=== PATIENT | female | born 1995 | race Caucasian/White ===

== ENCOUNTER 2018-01-18 17:58 | Emergency (ER) | payer OTHER ==
[~2018-01-18] VITALS: Ht 160 cm; Wt 61.2 kg
[~2018-01-18 17:58] MED LIST: CATAFLAM50 MG PO; KETO10TA2 PO; ORPH100T PO
== END 2018-01-18 21:38 | disposition home or self-care (01) ==
LOC: ER 17:58
DX: J06.9 Acute upper respiratory infection, unspecified (principal); J32.8 Other chronic sinusitis

== ENCOUNTER 2019-08-27 12:01 | Emergency (ER) | payer OTHER ==
[~2019-08-27] VITALS: Ht 154.9 cm; Wt 56.7 kg
== END 2019-08-27 14:17 | disposition home or self-care (01) ==
LOC: ER 12:01
DX: B34.9 Viral infection, unspecified (principal); J11.1 Influenza due to unidentified influenza virus with other respiratory manifestations

== ENCOUNTER → 2019-12-04 11:27 | Outpatient (CLI) | payer OTHER | END | disposition home or self-care (01) | LOC: LAB 11:27 | DX: J11.1 Influenza due to unidentified influenza virus with other respiratory manifestations (principal) ==

== ENCOUNTER 2020-12-13 07:18 | Outpatient (CLI) | payer OTHER | END 2020-12-13 18:00 | disposition home or self-care (01) | LOC: RAD 07:18 | PROVIDERS: ATTEND General Practice | DX: R05 Cough (principal) ==